=== PATIENT | male | born 1990 | race African-American/Black ===

== ENCOUNTER 2019-04-15 13:39 | Emergency (ER) | payer SELFPAY ==
--- NOTE | 2019-04-15 15:25 | CR ---
INDICATION: Foot pain COMPARISON: none TECHNIQUE: Two-view right foot FINDINGS: The bones are anatomically aligned. There is no evidence of fracture, erosion or intrinsic bone lesion. The soft tissues appear normal. IMPRESSION: Negative right foot. Dictated by Phil Woodruff MD @ Apr 15 2019 3:21PM Signed by Dr. Phil Woodruff @ Apr 15 2019 3:22PM
--- NOTE | 2019-04-15 16:15 | EDM.PDOC ---
ED HPI GENERAL MEDICAL PROBLEM - General Chief Complaint: Lower Extremity Injury/Pain Stated Complaint: HURT BIG TOE Time Seen by Provider: 04/15/19 16:13 Source of Information: Reports: Patient - History of Present Illness INITIAL COMMENTS - FREE TEXT/NARRATIVE: HISTORY AND PHYSICAL: History of present illness: [Patient presents with great toe pain after stubbing his toe several days ago he is been heel walking due to discomfort no other injury no fever nausea vomiting chills sweats ] Review of systems: As per history of present illness and below otherwise all systems reviewed and negative. Past medical history: As per history of present illness and as reviewed below otherwise noncontributory. Surgical history: As per history of present illness and as reviewed below otherwise noncontributory. Social history: No reported history of drug or alcohol abuse. Family history: As per history of present illness and as reviewed below otherwise noncontributory. Physical exam: HEENT: Atraumatic, normocephalic, pupils reactive, negative for conjunctival pallor or scleral icterus, mucous membranes moist, throat clear, neck supple, nontender, trachea midline. Lungs: Clear to auscultation, breath sounds equal bilaterally, chest nontender. Heart: S1S2, regular, negative for clicks, rubs, or JVD. Abdomen: Soft, nondistended, nontender. Negative for masses or hepatosplenomegaly. Negative for costovertebral tenderness. Pelvis: Stable nontender. Genitourinary: Deferred. Rectal: Deferred. Extremities: Atraumatic, negative for cords or calf pain. Neurovascular unremarkable. Right foot no redness warmth or swelling ;tender over distal metacarpal great toe no redness warmth or open lesion no bruising noted Neuro: Awake, alert, oriented. Cranial nerves II through XII unremarkable. Cerebellum unremarkable. Motor and sensory unremarkable throughout. Exam nonfocal. Diagnostics: [Right foot 2 views CBC uric acid ] Therapeutics: [ postop shoe rest ice ibuprofen ] Impression: [ right foot injury ] Definitive disposition and diagnosis as appropriate pending reevaluation and review of above. Right Toe-Hailux Pain Score (Numeric/FACES): 5 - Related Data Allergies Allergy/AdvReac Type Severity Reaction Status Date / Time No Known Allergies Allergy Verified 04/15/19 14:11 Home Meds: Home Meds . [No Known Home Meds] 04/15/19 [History] Past Medical History - Past Health History Medical/Surgical History: Denies Medical/Surgical History - Infectious Disease History Infectious Disease History: Reports: None Social & Family History - Family History Family Medical History: Noncontributory - Tobacco Use Smoking Status *Q: Never Smoker Second Hand Smoke Exposure: No - Caffeine Use Caffeine Use: Reports: Coffee - Recreational Drug Use Recreational Drug Use: No Review of Systems - Review of Systems Review Of Systems: See Below ED EXAM, GENERAL - Physical Exam Exam: See Below Course - Vital Signs Last Recorded V/S: Last Vital Signs Temp 97.9 F 04/15/19 14:12 Pulse 84 04/15/19 14:12 Resp 16 04/15/19 14:12 BP 134/73 04/15/19 14:12 Pulse Ox 100 04/15/19 14:12 - Orders/Labs/Meds Labs: Laboratory Tests 04/15/19 04/15/19 Range/Units 15:27 15:27 WBC 4.46 (4.0-11.0) K/uL RBC 5.28 (4.50-5.90) M/uL Hgb 15.3 (13.0-17.0) g/dL Hct 44.1 (38.0-50.0) % MCV 83.5 (80.0-98.0) fL MCH 29.0 (27.0-32.0) pg MCHC 34.7 (31.0-37.0) g/dL RDW Std Deviation 42.6 (28.0-62.0) fl RDW Coeff of Georges 14 (11.0-15.0) % Plt Count 213 (150-400) K/uL MPV 10.00 (7.40-12.00) fL Neut % (Auto) 50.9 (48.0-80.0) % Lymph % (Auto) 35.9 (16.0-40.0) % Pacific % (Auto) 11.7 (0.0-15.0) % Eos % (Auto) 1.1 (0.0-7.0) % Baso % (Auto) 0.4 (0.0-1.5) % Neut # (Auto) 2.3 (1.4-5.7) K/uL Lymph # (Auto) 1.6 (0.6-2.4) K/uL Pacific # (Auto) 0.5 (0.0-0.8) K/uL Eos # (Auto) 0.1 (0.0-0.7) K/uL Baso # (Auto) 0.0 (0.0-0.1) K/uL Nucleated RBC % 0.0 /100WBC Nucleated RBCs # 0 K/uL Uric Acid 4.3 (2.6-7.2) mg/dL Departure - Departure Time of Disposition: 16:15 Disposition: Home, Self-Care 01 Condition: Good Clinical Impression: Right foot injury - Discharge Information Referrals: PCP,None [Primary Care Provider] - Forms: ED Department Discharge Additional Instructions: Postop shoe Rest ice ibuprofen Follow-up with primary care in 2 weeks sooner as needed [facility] - Primary Care [address] [place] [id number] The following information is given to patients seen in the emergency department who are being discharged to home. This information is to outline your options for follow-up care. We provide all patients seen in our emergency department with a follow-up referral. The need for follow-up, as well as the timing and circumstances, are variable depending upon the specifics of your emergency department visit. If you don't have a primary care physician on staff, we will provide you with a referral. We always advise you to contact your personal physician following an emergency department visit to inform them of the circumstance of the visit and for follow-up with them and/or the need for any referrals to a consulting specialist. The emergency department will also refer you to a specialist when appropriate. This referral assures that you have the opportunity for follow-up care with a specialist. All of these measure are taken in an effort to provide you with optimal care, which includes your follow-up. Under all circumstances we always encourage you to contact your private physician who remains a resource for coordinating your care. When calling for follow-up care, please make the office aware that this follow-up is from your recent emergency room visit. If for any reason you are refused follow-up, please contact the [facility] emergency department at and asked to speak to the emergency department charge nurse.
== END 2019-04-15 16:26 | disposition home or self-care (01) ==
LOC: MW.ED 13:39
DX: S99.921A Unspecified injury of right foot, initial encounter (principal); W22.8XXA Striking against or struck by other objects, initial encounter
CPT/HCPCS: 36415; 73620-26-RT; 73620-RT; 84550; 85025; 99283-25

== ENCOUNTER 2019-12-18 16:14 | Emergency (ER) | payer SELFPAY ==
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
--- NOTE | 2019-12-18 17:09 | CR ---
Chest: 2 views of the chest were obtained. Comparison: No prior chest imaging. Heart size and mediastinum are normal. Lungs are clear with no acute parenchymal change. Bony structures appear within normal limits. Impression: 1. Nothing acute is appreciated on 2 view chest x-ray. Diagnostic code #1 This report was dictated in Mountain Standard Time
[2019-12-18 17:50] LABS: BLOOD UREA NITROGEN,BUN 10 mg/dL (7.0-18.0); CARBON DIOXIDE,CO2 29.6 mmol/L (21.0-32.0); CHLORIDE,CL 105 mmol/L (98-107); GLUCOSE RANDOM 43 mg/dL (74-106); POTASSIUM,K 4.2 mmol/L (3.5-5.1); SODIUM,NA 143 mmol/L (136-148)
== END 2019-12-18 18:01 | disposition home or self-care (01) ==
LOC: MW.ED 16:14
DX: Z00.00 Encounter for general adult medical examination without abnormal findings (principal); F17.210 Nicotine dependence, cigarettes, uncomplicated
CPT/HCPCS: 36415; 71046; 71046-26; 80053; 82375; 85025; 99282; 99283-25

== ENCOUNTER 2021-05-31 20:34 | Emergency (ER) | payer SELFPAY ==
[2021-05-31] MEDS ORDERED: Ketorolac 15 MG/ML SDV IM ONE (21:31)
--- NOTE | 2021-05-31 21:33 | CR ---
For Patients: As a result of the Cures Act, medical imaging exams and procedure reports are released immediately into your electronic medical record. You may view this report before your referring provider. If you have questions, please contact your health care provider. INDICATION: Pain. TECHNIQUE: Three views of the right great toe. COMPARISON: 04/15/2019. IMPRESSION: No fracture is identified. No subluxation or dislocation. Joint spaces are well maintained. Mild hallux valgus and small bunion deformity. No erosive changes. Dictated by Pete Desai MD @ 05/31/2021 9:32:31 PM Dictated by: Pete Desai MD @ 05/31/2021 21:32:37 (Electronically Signed)
--- NOTE | 2021-05-31 22:37 | EDM.PDOC ---
ED HPI GENERAL MEDICAL PROBLEM - General Chief Complaint: General Stated Complaint: TOE PAIN, SWELLING Time Seen by Provider: 05/31/21 20:43 - History of Present Illness INITIAL COMMENTS - FREE TEXT/NARRATIVE: CHIEF COMPLAINT(S): "My foot." HISTORY OF PRESENT ILLNESS: This is a 31-year-old man without any significant past medical history who comes into the emergency department with chief complaint of "my foot." The patient states that he is in the emergency department because of his foot. He states that it is swollen. He states that it is mainly in his right big toe and it swollen. He states that it hurts and rates his pain as a 9 out of 10. He cannot explain the pain feels like but he states that it does hurt. He states that it starts at the base of the toe and then goes all the way to the end of the toe. He states that he heard this weird popping noise. He denies any numbness, tingling or weakness. He states that he has not tried anything to relieve of the pain. He states that walking on it definitely hurts. He denies any trauma and he does not think it broke. He denies any other symptoms. REVIEW OF SYSTEMS: Constitutional: Denies fever, chills. Eyes: Denies eye pain Ears, Nose, Mouth, & Throat: Denies earache Cardiovascular: Denies chest pain Respiratory: Denies shortness of breath Gastrointestinal: Denies Nausea, vomiting, diarrhea, hematochezia. Genitourinary: Denies hematuria Skin:Denies a rash MSK: Positive for right big toe pain and swelling Neurological: Denies blurred vision, numbness, tingling, weakness psychiatric: Denies depression PAST MEDICAL HISTORY: As per history of present illness and as reviewed below otherwise noncontributory. SURGICAL HISTORY: As per history of present illness and as reviewed below otherwise noncontributory. SOCIAL HISTORY: As per history of present illness and as reviewed below otherwise noncontributory. FAMILY HISTORY: As per history of present illness and as reviewed below otherwise noncontributory. EXAMINATION OF ORGAN SYSTEMS/BODY AREAS: Constitutional: Blood pressure is 108/79, heart rate 88, respiratory rate 20 with an oxygen saturation of 100% on room air. Temperature 36.6 General: Young man who is in no acute distress who is on his cell phone Psychiatric: Appropriate mood and affect. Eyes: No scleral icterus or conjunctival erythema Cardiovascular: Regular, rate, and rhythm. No gallops, murmurs, or rubs. Bilateral upper extremity and lower extremity pulses symmetric and intact. No peripheral edema. Respiratory: Lungs clear to auscultation bilaterally. No wheezes, rales, or rhonchi. Musculoskeletal: The patient's right big toe does appear to be different from the left big toe. Right big toe seems to have a deformity where it bends towards the middle. There is no obvious swelling. There is no tenderness on examination. The patient has full range of motion of all his toes on the right foot. No warmth or redness. Skin: No lesions or abrasions. Neurological: Alert, GCS 15 distal sensation is intact MEDICAL DECISION MAKING AND COURSE IN THE ED WITH INTERPRETATION/REVIEW OF DIAGNOSTIC STUDIES: This is a 31-year-old man without any significant past medical history who comes to the emergency department with a complaint of right big toe pain for an unknown duration of time. There is a deformity of the toe however does not appear to be infected is not warm and it is nontender to touch. It is uncertain as to what is causing the patient's pain however we will obtain a right foot x-ray. We will provide the patient with Toradol for pain relief. On review of the patient's chart it does appear that he has been evaluated before in 2019 after he injured his big toe and the x-ray at that time did not show any abnormality. The radiological images were viewed by myself along with reading the report from the radiologist. Right big toe x-ray does not reveal any fracture. There is no subluxation or dislocation. Joint spaces are normal. There is mild hallux valgus and small bunion deformity. No erosive changes. After imaging I did discuss the results with the patient. I discussed them I like him to use Tylenol and Motrin for pain relief and it is important that he f inds well fitting shoes or orthotics from a store. I think it is given the importance for him to follow-up with podiatry as he will likely need a different type of shoe and monitoring to see if symptoms improve. He was amenable to discharge at this time and had no further questions. He was given strict return precautions DISPOSITION: The patient was discharged home in stable condition. The patient will follow up with podiatry within 1 week CONDITION: Fair PROCEDURES: None FINAL IMPRESSION(S)/DIAGNOSES: 1. Acute bunion deformity of the right big toe Gus Benoit M.D. - Related Data Allergies Allergy/AdvReac Type Severity Reaction Status Date / Time No Known Allergies Allergy Verified 12/18/19 16:21 Home Meds: Home Meds . [No Known Home Meds] 04/15/19 [History] Past Medical History - Past Health History Medical/Surgical History: Denies Medical/Surgical History - Infectious Disease History Infectious Disease History: Reports: None - Past Surgical History Musculoskeletal Surgical History: Reports: Other (See Below) Other Musculoskeletal Surgeries/Procedures:: jaw surgery, metal plate Social & Family History - Family History Family Medical History: No Pertinent Family History - Tobacco Use Tobacco Use Status *Q: Never Tobacco User - Caffeine Use Caffeine Use: Reports: Tea - Recreational Drug Use Recreational Drug Use: No ED ROS GENERAL - Review of Systems Review Of Systems: See Below ED EXAM, GENERAL - Physical Exam Exam: See Below Course - Vital Signs Last Recorded V/S: Last Vital Signs Temp 36.6 C 05/31/21 20:44 Pulse 88 05/31/21 20:44 Resp 20 05/31/21 20:44 BP 108/79 05/31/21 20:44 Pulse Ox 100 05/31/21 20:44 - Orders/Labs/Meds Meds: Medications Discontinued Medications Generic Name Dose Route Start Last Admin Trade Name Maxiq PRN Reason Stop Dose Admin Ketorolac Tromethamine 15 mg 05/31/21 21:31 05/31/21 21:36 Ketorolac 15 Mg/Ml Sdv IM 05/31/21 21:32 15 mg ONETIME ONE Administration Departure - Departure Time of Disposition: 22:35 Disposition: Home, Self-Care 01 Condition: Fair Clinical Impression: Bunion of great toe of right foot - Discharge Information *COPY OF PRESCRIPTION DRUG MONITORING REPORT IN PATIENT CARLOS: No Instructions: Bunion Referrals: PCP,None [Primary Care Provider] - Forms: ED Department Discharge Additional Instructions: You were evaluated today on an emergent basis. At this time your x-ray did show that you have what is called a bunion. It is reported as mild. I recommend that you use Tylenol and Motrin alternating for pain relief. You may ice the area 20 minutes four times a day. It is important that you find well fitting shoes and you are welcome to buy orthotics from local store. However it is going to be important that you follow-up with a wooling machine operator for further evaluatio n and monitoring. If you have any worsening pain, redness, swelling I would like you to return to the emergency department. Please use: Tylenol 500-1000mg every 6 hours (DO NOT TAKE MORE THAN 4000mg in 1 day) Ibuprofen 400mg every 6 hours (Take with food as it can cause ulcers, GI upset) Example schedule: 8:00 AM (Tylenol 500-1000mg) 11:00 AM (Ibuprofen 400mg) 2:00 PM (Tylenol 500-1000mg) 5:00 PM (Ibuprofen 400mg) Ice the area 20 minutes 4 times per day Pod[address]ry Dr. Kenny [phone] The patient is informed of any results of their evaluation and diagnostic workup and all questions are answered. They are given discharge instructions and return precautions. The patient is stable for discharge. The patient states they understand and agree with the plan and that they will return if their symptoms get worse or if they have any new concerns. The following information is given to patients seen in the emergency department who are being discharged to home. This information is to outline your options for follow-up care. We provide all patients seen in our emergency department with a follow-up referral. The need for follow-up, as well as the timing and circumstances, are variable d epending upon the specifics of your emergency department visit. If you don't have a primary care physician on staff, we will provide you with a referral. We always advise you to contact your personal physician following an emergency department visit to inform them of the circumstance of the visit and for follow-up with them and/or the need for any referrals to a consulting specialist. The emergency department will also refer you to a specialist when appropriate. This referral assures that you have the opportunity for follow-up care with a specialist. All of these measure are taken in an effort to provide you with optimal care, which includes your follow-up. Under all circumstances we always encourage you to contact your private physician who remains a resource for coordinating your care. When calling for follow-up care, please make the office aware that this follow-up is from your recent emergency room visit. If for any reason you are refused follow-up, please contact the [facility] Emergency Department at and asked to speak to the emergency department charge nurse. Sepsis Event Note (ED) - Evaluation Sepsis Screening Result: No Definite Risk
== END 2021-05-31 22:43 | disposition home or self-care (01) ==
LOC: MW.ED 20:34
DX: M21.611 Bunion of right foot (principal)
CPT/HCPCS: 73660; 96372; 99283; J1885

== ENCOUNTER 2022-07-05 16:08 | Emergency (ER) | payer SELFPAY ==
[2022-07-05] MEDS ORDERED: Ondansetron 4 MG/2 ML SDV IVPUSH ONE (16:46)
[2022-07-05] MEDS ORDERED: Sodium Chloride 0.9% 1,000 ML IV ONE (16:46)
[2022-07-05 17:20] LABS: CARBON DIOXIDE,CO2 31.7 mmol/L (21.0-32.0); POTASSIUM,K 4.4 mmol/L (3.5-5.1)
== END 2022-07-05 17:56 | disposition home or self-care (01) ==
LOC: MW.ED 16:08
DX: K52.9 Noninfective gastroenteritis and colitis, unspecified (principal); Z20.822 Contact with and (suspected) exposure to COVID-19
CPT/HCPCS: 36415; 80053; 83690; 85025; 87635; 96361; 96374; 99284; J2405; J7030; U0002

== ENCOUNTER 2023-01-27 02:13 | Emergency (ER) | payer BC | END 2023-01-27 02:32 | LOC: MW.ED 02:13 | DX: Z02.89 Encounter for other administrative examinations (principal) | CPT/HCPCS: 82947; 99283 ==

== ENCOUNTER 2023-10-06 16:08 | Emergency (ER) | payer SELFPAY ==
[2023-10-06 18:08] LABS: CORONAVIRUS COVID-19 NAA NEGATIVE (NEGATIVE); INFLUENZA A NAA NEGATIVE (NEGATIVE); INFLUENZA B NAA NEGATIVE (NEGATIVE); RESPIRATORY SYNCYTIAL VIR NAA NEGATIVE (NEGATIVE)
== END 2023-10-06 18:34 | disposition home or self-care (01) ==
LOC: MW.ED 16:08
DX: R05.9 Cough, unspecified (principal); Z20.822 Contact with and (suspected) exposure to COVID-19
CPT/HCPCS: 0241U; 99283

== ENCOUNTER 2025-01-02 18:08 | Emergency (ER) | payer SELFPAY ==
[2025-01-02] MEDS: Erythromycin Base 0.5% Ophth Oint 1 GM Tube EYEBOTH ONE (19:40)
== END 2025-01-02 19:44 | disposition home or self-care (01) ==
LOC: MW.ED 18:08
DX: H01.004 Unspecified blepharitis left upper eyelid (principal); Z75.8 Other problems related to medical facilities and other health care
CPT/HCPCS: 99282; A9270

== ENCOUNTER 2025-03-11 11:27 | Emergency (ER) | payer SELFPAY | END 2025-03-11 12:55 | disposition home or self-care (01) | LOC: MW.ED 11:27 | DX: H00.14 Chalazion left upper eyelid (principal); F17.210 Nicotine dependence, cigarettes, uncomplicated; Z79.899 Other long term (current) drug therapy; Z75.3 Unavailability and inaccessibility of health-care facilities | CPT/HCPCS: 99282; 99283 ==